=== PATIENT | male | born 1995 | race Caucasian/White ===

== ENCOUNTER 2024-12-24 06:19 | Day surgery (SDC) | payer OTHER ==
[2024-12-15 12:46] VITALS: BMI 27.1
[2024-12-24 12:02] VITALS: TEMP 97.6
[2024-12-24 12:24] VITALS: BP 120/82; PULSE 65; RESP 16
== END 2024-12-24 12:30 | disposition home or self-care (01) ==
LOC: JASU-ENDO 06:19
PROVIDERS: ATTEND Internal Medicine Gastroenterology
PROC: 0DJD8ZZ Inspection of Lower Intestinal Tract, Via Natural or Artificial Opening Endoscopic (ICD-10-PCS; principal; 2024-12-24 11:00)
DX: Z12.11 Encounter for screening for malignant neoplasm of colon (principal); Z80.0 Family history of malignant neoplasm of digestive organs